=== PATIENT | female | born 1975 | race Caucasian/White ===

== ENCOUNTER 2022-03-06 12:07 | Emergency (ER) | payer OTHER ==
[~2022-03-06] VITALS: Ht 162.6 cm; Wt 74.8 kg
[2022-03-06 12:17] VITALS: BP 122/80
--- NOTE | 2022-03-06 12:20 | NUR ---
AMBULATED TO BED 7
[2022-03-06] MEDS ORDERED: diphenhydrAMINE 50 MG/ML VIAL IVP ONE (13:00)
[2022-03-06] MEDS ORDERED: KETOROLAC 30 MG/ML VIAL IVP ONE (13:00)
[2022-03-06] MEDS ORDERED: NACL 0.9% 1,000 ML IV ONE ×2 (13:00→15:40)
[2022-03-06] MEDS ORDERED: ONDANSETRON 4 MG/2 ML VIAL IVP ONE (13:00)
--- NOTE | 2022-03-06 13:20 | NUR ---
Dr. Maguire evaluating patient at bedside.
[2022-03-06 13:46] LABS: BASOPHILS % (AUTO) 0.4 % (0.0-2.0); EOSINOPHILS % (AUTO) 0.5 % (0.0-4.0); HEMATOCRIT 37.9 % (36-48); HEMOGLOBIN 12.5 g/dL (12.0-16.0); LYMPHOCYTES % (AUTO) 17.6 % (20.5-51.1); MEAN CORPUSCULAR HEMOGLOBIN 26 pg (27-31); MEAN CORPUSCULAR HGB CONC 33 g/dL (33-37); MEAN CORPUSCULAR VOLUME 79.7 fL (80-94); MONOCYTES # (AUTO) 0.2 K/uL (0.8-1.0); MONOCYTES % (AUTO) 4.2 % (1.7-9.3); NEUTROPHILS # (AUTO) 4.2 K/uL (1.8-7.7); NEUTROPHILS % (AUTO) 77.3 % (42.2-75.2); PLATELET COUNT (AUTO) 136 K/uL (140-450); RED BLOOD CELL COUNT(AUTO) 4.75 MIL/uL (4.20-5.40); RED CELL DISTRIBUTION WIDTH 16.3 % (11.6-13.7); WHITE BLOOD COUNT (AUTO) 5.4 K/uL (4.8-10.8)
[2022-03-06 14:17] LABS: ALBUMIN 3.6 g/dL (3.4-5.0); ANION GAP 14.8 (8-16); ASPARTATE AMINOTRANSFERASE 23 U/L (15-37); CHLORIDE 102 mmol/L (98-107); CREATININE 0.8 mg/dL (0.6-1.3); GFR ARICAN-AMERICAN 99 mL/min (>90); GLUCOSE 107 mg/dL (74-106); POTASSIUM 3.8 mmol/L (3.5-5.1); SODIUM SERUM 138 mmol/L (136-145); TOTAL BILIRUBIN 0.7 mg/dL (0.0-1.0); UREA NITROGEN, BLOOD 11 mg/dL (7-18)
[2022-03-06] MEDS ORDERED: FAMO-92 PO (15:13)
[2022-03-06] MEDS ORDERED: SIME125T38 PO (15:13)
[2022-03-06] MEDS ORDERED: ONDA-188 PO (15:13)
--- NOTE | 2022-03-06 16:35 | NUR ---
Dr. Maguire re-evaluating patient at bedside.
[2022-03-06 16:44] VITALS: BP 134/80
--- NOTE | 2022-03-06 16:44 | NUR ---
Patient discharged with v/s stable. Written and verbal after care instructions given. Patient alert, oriented and verbalized understanding of instructions. Ambulatory with steady gait. All questions addressed prior to discharge. ID band removed. Patient advised to follow up with PMD. Rx of Pepcid, Zofran and Mylanta given. Opportunity to ask questions provided and answered.
--- NOTE | 2022-03-06 16:45 | NUR ---
The patient's care was reviewed and supervised by Lili Weaver RN.
--- NOTE | 2022-03-10 18:29 | NUR ---
LATE ENTRY. 0.9% NS DISCONTINUED 03/06/22 AT 1644
== END 2022-03-06 16:44 | disposition home or self-care (01) ==
LOC: MED 12:07
DX: R42 Dizziness and giddiness (principal); R55 Syncope and collapse; R10.11 Right upper quadrant pain; Z79.899 Other long term (current) drug therapy
CPT/HCPCS: 36415; 76705; 80053; 81002; 81025; 84484; 84702; 85025; 96361; 96374; 96375; 99284; J1200; J1885; J2405; Q0092; J7030